=== PATIENT | male | born 1985 | race Caucasian/White ===

== ENCOUNTER 2021-01-31 18:57 | Emergency (ER) | payer OTHER, SELFPAY ==
--- NOTE | ~2021-01-31 | CT_ITS ---
EXAMINATION: CT brain wo con INDICATION: Headache, reportedly inoperable brain tumor COMPARISON: None TECHNIQUE: Standard unenhanced head CT. The dose-length product (DLP) was 605.33 mGy-cm. The mA was a djusted according to patient size. Iterative reconstruction technique was employed. FINDINGS: There is no intracranial hemorrhage or acute infarction. No definite mass is identified to correlate with the patient's reported history of brain tumors. There is questionable low-attenuation in the rudolph and medulla. The ventricles are normal. There is no abnormal mass effect or midline shift . The harmon-white matter differentiation is normal. The basal cisterns are patent. The orbits are norm al. There is near complete opacification of the sphenoid sinuses. Mucosal thickening is noted in the ethmoidal air cells. IMPRESSION: 1. No acute intracranial abnormality. 2. Sinus disease. 3. No definite mass identified. Low-attenuation of the rudolph and medulla could represent the patient's mass. Reviewed, dictated and finalized at location A. IMPRESSION: 1. No acute intracranial abnormality. 2. Sinus disease. 3. No definite mass identified. Low-attenuation of the rudolph and medulla could r epresent the patient's mass.
[2021-01-31 19:08] VITALS: BP 151/94; PULSE 87; RESP 18; TEMP 36.8; O2SAT 98
--- NOTE | 2021-01-31 20:08 | ED.HA ---
HPI - Headache General Chief Complaint: Headache Stated Complaint: headache, history of brain tumors Time Seen by Provider: 01/31/21 20:06 History of Present Illness HPI Narrative: 35 yo male w/ h/o prolactinoma presents to the ED for a NOGUERA. He has had a throbbing NOGUERA intermittently for the past 2 days. Associated with mild nausea and fatigue. Some temporary improvement with ibuprofen. He has had this type of headache in the past. No weakness, numbness, incoordination, confusion. Related Data Home Medications Medication Instructions Recorded Confirmed No Home Medications 01/31/21 01/31/21 Allergies Allergy/AdvReac Type Severity Reaction Status Date / Time No Known Allergies Allergy Verified 01/31/21 20:20 Review of Systems Review of Systems: All systems reviewed & are unremarkable except as noted in HPI and below Constitutional: Constitutional: Denies fever(s) ENT: Denies dizziness Cardiovascular: Cardiovascular: Denies chest pain Respiratory: Respiratory: Denies dyspnea Gastrointestinal: Gastrointestinal: Reports nausea and Denies vomiting Genitourinary: Genitourinary: Reports no additional male genitourinary complaints and Denies urinary incontinence Neurologic: Denies confusion, Denies dizziness, Denies numbness and Denies weakness PMFSH Past Medical History Medical History (Updated 02/01/21 @ 00:00 by Anahy Candelaria) Prolactinoma Social History Social History (Updated 01/31/21 @ 20:29 by Andrei Romeo MD) Gender identity (if verbalized by the patient): Male Exam Const: General: no acute distress and alert Nutritional Appearance: well nourished Orientation/consciousness: patient oriented x3 HENMT: Head: normal to inspection Eyes: Pupils: Equal, round and reactive pupils present EOM: EOMs intact bilaterally Resp: Effort & Inspection: normal respiratory effort Skin: General skin exam: normal color Neuro: General: patient oriented x3, moves all extremities, no focal motor deficits and CN's II-XI intact bilaterally Speech: normal speech Gait exam (Neuro): Normal gait present Extrem: General: normal to inspection Course Vital Signs Vital signs: Vital Signs Temperature 36.8 C 01/31/21 19:08 Pulse Rate 87 01/31/21 19:08 Respiratory Rate 18 01/31/21 19:08 Blood Pressure 151/94 H 01/31/21 19:08 Pulse Oximetry 98 01/31/21 19:08 Temperature 36.8 C 01/31/21 19:08 Pulse Rate 70 01/31/21 23:26 Respiratory Rate 19 01/31/21 23:26 Blood Pressure 143/88 H 01/31/21 23:26 Pulse Oximetry 98 01/31/21 23:26 MDM - Headache MDM Narrative Medical decision making narrative: No obvious mass or mass effect on CT. This is similar to past headaches. No worrisome findings on history or exam. Differential Diagnosis Differential diagnosis: Likely migraine and tension headache Medical Records Attestation: I reviewed the patient's medical records. Imaging Data Radiologist's impression: ITS Impressions Head CT 01/31/21 19:39 IMPRESSION: 1. No acute intracranial abnormality. 2. Sinus disease. 3. No definite mass identified. Low-attenuation of the rudolph and medulla could represent the patient's mass. Discharge Plan Discharge Clinical Impression: Migraine Patient Disposition: Home, Self-Care Condition: Stable Instructions: Migraine Headache (ED) Prescriptions: No Action No Home Medications RF: 0 Follow-up/Referrals: PHYSICIAN NOT ON STAFF,NONSTAFF [Primary Care Provider] -
[2021-01-31] MEDS: SODIUM CHLORIDE 0.9% IV 1,000 ML 999 ML IV CONT (21:24)
[2021-01-31] MEDS: METOCLOPRAMIDE HCL INJ 10 MG/2 ML VIAL IV PUSH (21:25)
[2021-01-31] MEDS: KETOROLAC 30 MG/ML VIAL (*BKC) IV PUSH (21:25)
[2021-01-31] MEDS: diphenhydrAMINE HCl INJ 50 MG/ML VIAL 25 MG IV PUSH (21:27)
[2021-01-31] MEDS: DEXAMETHASONE SOD PHOS INJ 4 MG/ML VIAL 10 MG IV PUSH (21:28)
[2021-01-31 22:37] VITALS: BP 142/71; PULSE 63; RESP 18; O2SAT 98
[2021-01-31 23:26] VITALS: BP 143/88; PULSE 70; RESP 19; O2SAT 98
== END 2021-01-31 23:30 | disposition home or self-care (01) ==
PROVIDERS: Emergency Provider Emergency Medicine
DX: G43.909 Migraine, unspecified, not intractable, without status migrainosus (principal)
CPT/HCPCS: 70450; 96365; 96375; 99284; J0131; J1100; J1200; J1885; J2765; J7030